=== PATIENT | female | born 1935 | race Caucasian/White ===

== ENCOUNTER 2018-05-24 18:38 | Inpatient (IN) | payer MEDICARE, OTHER ==
[~2018-05-24] VITALS: Ht 160 cm; Wt 64.0 kg
[2018-05-24] MEDS ORDERED: FISH1CAP2 PO (19:56)
[2018-05-24] MEDS ORDERED: LISI-604 MT (19:56)
[2018-05-24 20:00] VITALS: BP 149/41
[2018-05-24] MEDS ORDERED: DIGO0.12 PO (20:02)
[2018-05-24] MEDS ORDERED: TRIA1TAB92 MT (20:02)
[2018-05-24] MEDS ORDERED: ZOLPIDEM TARTRATE 5MG TABLET PO PRN (21:15)
[2018-05-24] MEDS ORDERED: ACETAMINOPHEN WITH CODEINE 300/30MG TABLET PO PRN (21:15)
[2018-05-24] MEDS ORDERED: ONDANSETRON HCL 4MG/2ML INJ IV PRN (21:15)
[2018-05-24 22:32] LABS: BASOPHILS % 0.8 % (0.0-2.0); EOSINOPHILS % 4.1 % (0.0-5.0); HEMOGLOBIN. 13.4 g/dL (12.0-16.0); MEAN CORPUSCULAR HEMOGLOBIN 31.1 pg (28.0-32.0); MEAN CORPUSCULAR VOLUME 92.9 fL (81.0-99.0); MEAN PLATELET VOLUME 7.9 fl (7.4-10.4); MONOCYTES % 9.4 % (2.0-8.0); NEUTROPHILS % 59.7 % (40.0-76.0); PLATELET 235 x1000/uL (130-400); RED CELL DISTRIBUTION WIDTH 15.5 % (11.6-14.6)
[2018-05-24 22:39] LABS: PARTIAL THROMBOPLASTIN TIME 25.3 sec (23.4-31.0); PROTHROMBIN TIME 10.4 sec (9.1-11.1)
[2018-05-24 22:59] LABS: DIGOXIN 0.6 ng/mL (0.9-2.0)
[2018-05-24] MEDS: ENOXAPARIN 80MG/0.8ML SYR SUBCUT SCH (23:03)
[2018-05-25] VITALS: BP 143/47
[2018-05-25 04:00] VITALS: BP 137/41
[2018-05-25] MEDS: PANTOPRAZOLE 40MG DR TABLET PO SCH (07:10)
[2018-05-25 08:00] VITALS: BP 131/69
[2018-05-25] MEDS: TRIAMTERENE/HYDROCHLOROTHIAZIDE 37.5/25MG CAPSULE PO SCH (08:48)
[2018-05-25] MEDS: LISINOPRIL 20MG TABLET PO SCH (08:48)
[2018-05-25] MEDS: ENOXAPARIN 80MG/0.8ML SYR SUBCUT SCH (08:49)
[2018-05-25 12:00] VITALS: BP 132/40
[2018-05-25 16:00] VITALS: BP 140/48
[2018-05-25] MEDS ORDERED: DIGOXIN 125MCG TABLET PO SCH (18:00)
[2018-05-25 20:00] VITALS: BP 126/45
[2018-05-25] MEDS: ENOXAPARIN 60MG/0.6ML SYR SUBCUT SCH (20:31)
[2018-05-26] VITALS: BP 114/72
[2018-05-26 04:00] VITALS: BP 124/52
[2018-05-26] MEDS: PANTOPRAZOLE 40MG DR TABLET PO SCH (07:10)
[2018-05-26 08:00] VITALS: BP 133/44
[2018-05-26] MEDS: TRIAMTERENE/HYDROCHLOROTHIAZIDE 37.5/25MG CAPSULE PO SCH (09:37)
[2018-05-26] MEDS: LISINOPRIL 20MG TABLET PO SCH (09:37)
[2018-05-26] MEDS: ENOXAPARIN 60MG/0.6ML SYR SUBCUT SCH (09:38)
[2018-05-26 12:00] VITALS: BP 121/36
[2018-05-26 14:47] VITALS: BP 121/36
== END 2018-05-26 15:17 | disposition home or self-care (01) | DRG 300 ==
LOC: 8WST 18:38
PROVIDERS: ADMIT Specialist; ATTEND Specialist
DX: I82.403 Acute embolism and thrombosis of unspecified deep veins of lower extremity, bilateral (principal); I47.1 Supraventricular tachycardia; I48.0 Paroxysmal atrial fibrillation; I10 Essential (primary) hypertension; M06.9 Rheumatoid arthritis, unspecified; E78.00 Pure hypercholesterolemia, unspecified; Z79.01 Long term (current) use of anticoagulants; Z83.3 Family history of diabetes mellitus; Z86.718 Personal history of other venous thrombosis and embolism
CPT/HCPCS: 36415; 71045; 80048; 80162; 83735; 93005; 93306; 93970; C1893; J1650